=== PATIENT | female | born 1980 | race Caucasian/White ===

== ENCOUNTER 2017-09-04 08:29 | Day surgery (SDC) | payer BC ==
[~2017-09-04] VITALS: Ht 162.6 cm; Wt 57.6 kg
[~2017-09-04 08:29] MED LIST: MOTRIN800 MG PO; PERCOCET 5/31 TABLET PO
[2017-09-04 09:08] VITALS: BP 101/60
[2017-09-04 11:40] VITALS: BP 94/56
[2017-09-04 12:42] VITALS: BP 96/52
== END 2017-09-04 12:43 | disposition home or self-care (01) ==
LOC: SDC 08:29
PROC: 0UBC7ZX Excision of Cervix, Via Natural or Artificial Opening, Diagnostic (ICD-10-PCS; principal; 2017-09-04)
DX: D06.9 Carcinoma in situ of cervix, unspecified (principal); R87.810 Cervical high risk human papillomavirus (HPV) DNA test positive
CPT/HCPCS: 88305; 88307; J1100; J2250; J2405; J3010; Q0175